=== PATIENT | male | born 1965 | race Caucasian/White ===

== ENCOUNTER 2023-11-28 11:33 | Emergency (ER) | payer OTHER ==
[2023-11-28 11:57] VITALS: BP 124/93; PULSE 79; RESP 18; TEMP 97.8; BMI 21.6
== END 2023-11-28 12:57 | disposition home or self-care (01) ==
LOC: JERFT 11:33
PROC: 0H96XZZ Drainage of Back Skin, External Approach (ICD-10-PCS; principal; 2023-11-28)
DX: L02.212 Cutaneous abscess of back [any part, except buttock and flank] (principal); L72.3 Sebaceous cyst
CPT/HCPCS: 99282-25